=== PATIENT | female | born 1990 | race Two or more races ===

== ENCOUNTER 2018-10-01 16:51 | Emergency (ER) | payer OTHER ==
[~2018-10-01] VITALS: Ht 160 cm; Wt 81.6 kg
[2018-10-01] MEDS ORDERED: MORPHINE SULFATE 4 MG/ML SYR/VIAL IV ONE (19:45)
[2018-10-01] MEDS ORDERED: ETOMIDATE (2MG/ML) 20ML VIAL IV ONE (19:45)
[2018-10-01] MEDS ORDERED: ONDANSETRON HCL 4 MG/2 ML VIAL IV ONE (19:45)
[2018-10-01 21:32] VITALS: BP 122/87
== END 2018-10-01 21:38 | disposition home or self-care (01) ==
LOC: ER 16:56
DX: S82.492A Other fracture of shaft of left fibula, initial encounter for closed fracture (principal); S82.55XA Nondisplaced fracture of medial malleolus of left tibia, initial encounter for closed fracture; X50.0XXA Overexertion from strenuous movement or load, initial encounter; Y93.89 Activity, other specified; Y99.8 Other external cause status; Y92.89 Other specified places as the place of occurrence of the external cause
CPT/HCPCS: 27781; 73610; 96374; 96375; 99152; 99285; J2270; J2405